=== PATIENT | female | born 1985 ===

== ENCOUNTER 2017-02-11 06:46 | Emergency (ER) | payer BC ==
[2017-02-11] MEDS ORDERED: Sodium Chloride 0.9% 1,000 ML IV STA (07:37)
[2017-02-11 08:05] LABS: BASO % 0.4 % (0.0-2.0); EOS % 0.5 % (0.0-4.0); HEMATOCRIT 38.7 % (34.0-47.0); LYMPH # 1.4 K/uL (1.0-4.3); LYMPH % 19.5 % (20.0-40.0); MEAN CELL VOLUME 91.9 fl (81.0-99.0); MEAN CORPUSCULAR HEMOGLOBIN 30.4 pg (27.0-31.0); MEAN CORPUSCULAR HGB CONC 33.1 g/dL (33.0-37.0); MEAN PLATELET VOLUME 9.3 fl (7.2-11.7); MONO # 0.7 K/uL (0.0-0.8); MONO % 10.3 % (0.0-10.0); NEUT # 4.8 K/uL (1.8-7.0); NEUT % 69.3 % (50.0-75.0); NRBC % 0.1 % (0.0-0.0); RED CELL DISTRIBUTION WIDTH 12.6 % (11.5-14.5)
[2017-02-11 08:18] LABS: ALB/GLOB RATIO 1.6 (1.0-2.1); ALKALINE PHOSPHATASE 54 U/L (38-126); ALT/SGPT 24 U/L (9-52); AST/SGOT 24 U/L (14-36); BILIRUBIN,TOTAL 0.5 mg/dl (0.2-1.3); BLOOD UREA NITROGEN 8 mg/dl (7-17); CALCIUM 10.2 mg/dL (8.4-10.2); CARBON DIOXIDE 27 mmol/L (22-30); CHLORIDE 103 mmol/L (98-107); GFR AFRICAN-AMERICAN > 60; GLUCOSE,RANDOM 89 mg/dL (65-105); LIPASE 74 U/L (23-300); POTASSIUM 3.9 MMOL/L (3.6-5.0); SODIUM 142 mmol/l (132-148); TOTAL PROTEIN 7.9 G/DL (6.3-8.2)
--- NOTE | 2017-02-11 08:52 | US ---
HISTORY: mid/upper abd pain COMPARISON: None available. TECHNIQUE: Sonographic evaluation of the abdomen. FINDINGS: LIVER: Measures 12.0 cm in sagittal dimension. Echogenic liver may be seen in setting of hepatic parenchymal disease or fatty infiltration. No focal hepatic mass identified. The main portal vein appears patent with normal directional flow. No intrahepatic bile duct dilatation. GALLBLADDER: Slightly contracted state limits evaluation. No gallstones. No gallbladder wall thickening. Negative sonographic Mercado's sign as assessed by the bag press operator. COMMON BILE DUCT: Measures 3 mm. PANCREAS: Not well visualized. RIGHT KIDNEY: Measures 11.7 x 4.6 x 4.9cm. No obstructing calculus or hydronephrosis identified. LEFT KIDNEY: Measures 11.8 x 4.8 x 5.5cm. No obstructing calculus or hydronephrosis identified. SPLEEN: Measures approximately 9.2 cm AORTA: Limited views appear unremarkable. IVC: Limited views appear unremarkable. OTHER FINDINGS: None. IMPRESSION: Echogenic liver may be seen in setting of hepatic parenchymal disease or fatty infiltration.
--- NOTE | 2017-02-11 09:48 | ED PDOC ---
HPI: Abdomen Time Seen by Provider: 02/11/17 07:08 Chief Complaint (Nursing): Abdominal Pain Chief Complaint (Provider): upper abd pain, vomiting History Per: Patient History/Exam Limitations: no limitations Onset/Duration Of Symptoms: Days (3 months, worse today) Location Of Pain/Discomfort: Epigastric Quality Of Discomfort: Sharp, Cramping Associated Symptoms: Nausea, Vomiting, Loss Of Appetite. denies: Diarrhea Exacerbating Factors: None Alleviating Factors: None Last Bowel Movement: Today Additional Complaint(s): 31yo female c/o epigastric pain (burning, cramping) associated with several episodes of nonbloody but bilious vomiting overnight, symptoms ongoing for several months but worse last several days. Denies melena, fever, weight loss or back pain. 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 Past Medical History Reviewed: Historical Data, Nursing Documentation Vital Signs: Last Vital Signs Temp 98.0 F 02/11/17 14:03 Pulse 66 02/11/17 14:03 Resp 16 02/11/17 14:03 BP 100/70 02/11/17 14:03 Pulse Ox 99 02/11/17 14:03 - Medical History PMH: Gastritis - Surgical History Surgical History: No Surg Hx - Family History Family History: States: Unknown Family Hx - Living Arrangements Living Arrangements: With Family - Social History Current smoker - smoking cessation education provided: No - Home Medications Home Medications: Ambulatory Orders Medication Instructions Recorded Ondansetron [Zofran] 4 mg PO Q6H PRN #10 tab 02/11/17 Pantoprazole [Protonix] 40 mg PO DAILY #30 02/11/17 - Allergies Allergies/Adverse Reactions: Allergies Allergy/AdvReac Type Severity Reaction Status Date / Time Penicillins Allergy RASH Verified 02/11/17 07:12 sulfamethoxazole Allergy RASH Verified 02/11/17 07:12 [From Bactrim] trimethoprim [From Bactrim] Allergy RASH Verified 02/11/17 07:12 Review of Systems ROS Statement: Except As Marked, All Systems Reviewed And Found Negative Constitutional: Negative for: Fever, Chills Cardiovascular: Negative for: Chest Pain, Palpitations Respiratory: Negative for: Cough, Shortness of Breath Gastrointestinal: Positive for: Nausea, Vomiting, Abdominal Pain. Negative for : Diarrhea Genitourinary Female: Negative for: Dysuria, Frequency Musculoskeletal: Negative for: Neck Pain, Shoulder Pain Skin: Negative for: Rash, Lesions, Jaundice Neurological: Negative for: Weakness, Numbness, Change in Speech Psych: Negative for: Depression Physical Exam - Reviewed Nursing Documentation Reviewed: Yes Vital Signs Reviewed: Yes - Physical Exam Appears: Positive for: Well, Non-toxic, No Acute Distress Head Exam: Positive for: ATRAUMATIC, NORMAL INSPECTION, NORMOCEPHALIC Skin: Positive for: Normal Color, Warm, DRY Eye Exam: Positive for: Normal appearance, EOMI, PERRL. Negative for: Scleral icterus ENT: Positive for: Normal ENT Inspection Neck: Positive for: Normal, Painless ROM Cardiovascular/Chest: Negative for: Tachycardia Respiratory: Negative for: Respiratory Distress Pulses-Radial (L): 2+ Gastrointestinal/Abdominal: Positive for: Soft, Tenderness (epigastric/RUQ). Negative for: Guarding, Rebound Extremity: Positive for: Normal ROM. 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 Negative for: Motor/Sensory Deficits - Laboratory Results Result Diagrams: 02/11/17 07:51 02/11/17 07:51 Urine POC: Negative - ECG O2 Sat by Pulse Oximetry: 100 Pulse Ox Interpretation: Normal Medical Decision Making Medical Decision Making: Workup for upper abdominal pain initiated. IVF bolus, IV antiemetic, IV protonix and PO bentyl ordered Labs and Abd US ordered. --------- Upreg neg Labs unremarkable including LFTs and lipase. 935am improving, GI radiosonde operator contacted [id number] Carpenter who recommends urgent endoscopy r/o gastric or duodenal ulcer. [address] Endo performed and per Dr Carpenter no concerning findings to warrant hospital admission. Dr Carpenter provided Rx and will followup with patient for biopsy results. Scribe~Attestation Documented by Diana Martin acting as a scribe for Christ Red MD Provider~Attestation All medical record entries made by the Scribe were at my direction and personally dictated by me. I have reviewed the chart and agree that the record accurately reflects my personal performance of the history, physical exam, medical decision making, and the department course for this patient. I have also personally directed, reviewed, and agree with the discharge instructions and disposition. Disposition - Clinical Impression Clinical Impression: Abdominal pain, History of esophagogastroduodenoscopy - Patient ED Disposition Is Patient to be Admitted: Yes Discussed With : patience - Disposition Referrals: Patience MONROE,MD Rosina [Medical Doctor] - Disposition Time: 11:22 Condition: STABLE Additional Instructions: Return to ER for any worse or new symptoms. See Dr Carpenter for followup. Prescriptions: Ondansetron [Zofran] 4 mg PO Q6H PRN #10 tab PRN Reason: Nausea/Vomiting Pantoprazole [Protonix] 40 mg PO DAILY #30 Instructions: Upper Endoscopy (GEN), Acute Abdominal Pain (ED), Deep Sedation ( ED) Forms: [employer] (Greenlandic)
[2017-02-11] MEDS ORDERED: Lidocaine 2% MPF (5 ml) Inj ONE (11:22)
[2017-02-11] MEDS ORDERED: Propofol 10 mg/ml Inj (20 ML) ONE (11:22)
[2017-02-11] MEDS ORDERED: Lactated Ringer's 500 ML IV ONE (11:39)
--- NOTE | 2017-02-11 12:35 | CP.PCM.CON ---
History of Present Illness - History of Present Illness History of Present Illness: Consult requested by ER- This is a 31 yr old resident who on night float started to have vomiting episodes with severe abdominal pain. As per patient she has had worsening epigastric pain for past 3 months associated with vomiting which is intermittent mostly in am. She denies hematemesis, rectal bleeding, change in bowel habits. She reports weight loss in past 3 months due to decreased appetite. She had EGD in [place] and was given cholestyramine and carafate. She self medicated herself with reglan and carafate. Review of Systems - Review of Systems Review of Systems: 12 point ROS unremarkable except that documented in HPI Past Patient History - Past Social History Smoking Status: Never Smoked - GASTROINTESTINAL Hx Gastritis: Yes - PSYCHIATRIC Hx Substance Use: No - SURGICAL HISTORY Hx Surgeries: No - ANESTHESIA Hx Anesthesia: No Meds Allergies/Adverse Reactions: Allergies Allergy/AdvReac Type Severity Reaction Status Date / Time Penicillins Allergy RASH Verified 02/11/17 07:12 sulfamethoxazole Allergy RASH Verified 02/11/17 07:12 [From Bactrim] trimethoprim [From Bactrim] Allergy RASH Verified 02/11/17 07:12 Physical Exam - Constitutional Appears: Well - Head Exam Head Exam: ATRAUMATIC, NORMAL INSPECTION, NORMOCEPHALIC - Eye Exam Eye Exam: EOMI, Normal appearance, PERRL - ENT Exam ENT Exam: Mucous Membranes Moist, Normal Exam - Respiratory Exam Respiratory Exam: Clear to Auscultation Bilateral, NORMAL BREATHING PATTERN - Cardiovascular Exam Cardiovascular Exam: REGULAR RHYTHM - GI/Abdominal Exam GI & Abdominal Exam: Normal Bowel Sounds, Soft. absent: Tenderness - Extremities Exam Extremities exam: Positive for: normal inspection - Neurological Exam Neurological exam: Alert, CN II-XII Intact, Normal Gait, Oriented x3, Reflexes Normal - Psychiatric Exam Psychiatric exam: Normal Affect, Normal Mood - Skin Skin Exam: Dry, Intact, Normal Color, Warm Results - Vital Signs Recent Vital Signs: Last Vital Signs Temp 96.8 F L 02/11/17 12:15 Pulse 78 02/11/17 12:15 Resp 16 02/11/17 12:15 BP 101/55 L 02/11/17 12:15 Pulse Ox 100 02/11/17 12:15 - Labs Result Diagrams: 02/11/17 07:51 02/11/17 07:51 Labs: Laboratory Results - last 24 hr 02/11/17 02/11/17 07:51 07:51 WBC 7.0 RBC 4.21 Hgb 12.8 Hct 38.7 MCV 91.9 MCH 30.4 MCHC 33.1 RDW 12.6 Plt Count 208 MPV 9.3 Neut % (Auto) 69.3 Lymph % (Auto) 19.5 L [place] % (Auto) 10.3 H Eos % (Auto) 0.5 Baso % (Auto) 0.4 Neut # 4.8 Lymph # 1.4 [place] # 0.7 Eos # 0.0 Baso # 0.0 Sodium 142 Potassium 3.9 Chloride 103 Carbon Dioxide 27 Anion Gap 15 BUN 8 Creatinine 0.7 Est GFR ( Amer) > 60 Est GFR (Non-Af Amer) > 60 Random Glucose 89 Calcium 10.2 Total Bilirubin 0.5 AST 24 ALT 24 Alkaline Phosphatase 54 Total Protein 7.9 Albumin 4.8 Globulin 3.1 Albumin/Globulin Ratio 1.6 Lipase 74 Assessment & Plan - Assessment and Plan (Free Text) Assessment: 31 yr old F with chronic abdominal / epigastric pain for past 3 months worsening in past week associated with vomiting. She self medicated herself with reglan and carafate. Yesterday night symptoms exacerbated. Patient was taken for urgent EGD that showed gastritis and gastric erosions. No PUD or duodenal ulcer. Plan: - PPi daily - Stool softeners - Follow up biopsy of esophagus, gastric and duodenum - Diet councelling- eat breakfast daily - May be discharged to home
[2017-02-11 12:39] VITALS: PULSE 66
--- NOTE | 2017-02-11 14:02 | CP.PCM.HP ---
History of Present Illness - History of Present Illness History of Present Illness: 31yo F with no PMHx c/o vomiting and abdominal pain. NB/NB vomitus today. a/w epigastric abd pain x3 months. Denies hematemesis, rectal bleeding, change in bowel habits. Some relief with reglan and carafate. PMHx: none FHx: NC Social Hx: denies x3 Allergies: PCN, SMP-TMX ED course: zofran IVF neg urine preg G/I c/s Present on Admission - Present on Admission Any Indicators Present on Admission: No Review of Systems - Review of Systems All systems: reviewed and no additional remarkable complaints except - Constitutional Constitutional: Weight Loss - Gastrointestinal Gastrointestinal: Abdominal Pain, Nausea, Vomiting Past Patient History - Past Social History Smoking Status: Never Smoked - GASTROINTESTINAL Hx Gastritis: Yes - PSYCHIATRIC Hx Substance Use: No - SURGICAL HISTORY Hx Surgeries: No - ANESTHESIA Hx Anesthesia: No Meds Home Medications: Home Medication List Medication Instructions Recorded Confirmed Type Ondansetron [Zofran] 4 mg PO Q6H PRN #10 tab 02/11/17 Rx Pantoprazole [Protonix] 40 mg PO DAILY #30 02/11/17 Rx Allergies/Adverse Reactions: Allergies Allergy/AdvReac Type Severity Reaction Status Date / Time Penicillins Allergy RASH Verified 02/11/17 07:12 sulfamethoxazole Allergy RASH Verified 02/11/17 07:12 [From Bactrim] trimethoprim [From Bactrim] Allergy RASH Verified 02/11/17 07:12 Physical Exam - Constitutional Appears: Non-toxic, No Acute Distress - Head Exam Head Exam: ATRAUMATIC, NORMAL INSPECTION - Eye Exam Eye Exam: Normal appearance - ENT Exam ENT Exam: Mucous Membranes Moist - Neck Exam Neck exam: Positive for: Full Rom, Normal Inspection - Respiratory Exam Respiratory Exam: Clear to Auscultation Bilateral - Cardiovascular Exam Cardiovascular Exam: REGULAR RHYTHM - GI/Abdominal Exam GI & Abdominal Exam: Soft, Tenderness - Extremities Exam Extremities exam: Positive for: normal inspection - Back Exam Back exam: NORMAL INSPECTION - Neurological Exam Neurological exam: Alert, Oriented x3 - Skin Skin Exam: Dry, Warm Results - Vital Signs Recent Vital Signs: Last Vital Signs Temp 96.8 F L 02/11/17 12:15 Pulse 66 02/11/17 12:37 Resp 14 02/11/17 12:37 BP 98/61 L 02/11/17 12:37 Pulse Ox 100 02/11/17 12:37 - Labs Result Diagrams: 02/11/17 07:51 02/11/17 07:51 Labs: Laboratory Results - last 24 hr 02/11/17 02/11/17 07:51 07:51 WBC 7.0 RBC 4.21 Hgb 12.8 Hct 38.7 MCV 91.9 MCH 30.4 MCHC 33.1 RDW 12.6 Plt Count 208 MPV 9.3 Neut % (Auto) 69.3 Lymph % (Auto) 19.5 L [place] % (Auto) 10.3 H Eos % (Auto) 0.5 Baso % (Auto) 0.4 Neut # 4.8 Lymph # 1.4 [place] # 0.7 Eos # 0.0 Baso # 0.0 Sodium 142 Potassium 3.9 Chloride 103 Carbon Dioxide 27 Anion Gap 15 BUN 8 Creatinine 0.7 Est GFR ( Amer) > 60 Est GFR (Non-Af Amer) > 60 Random Glucose 89 Calcium 10.2 Total Bilirubin 0.5 AST 24 ALT 24 Alkaline Phosphatase 54 Total Protein 7.9 Albumin 4.8 Globulin 3.1 Albumin/Globulin Ratio 1.6 Lipase 74 Assessment & Plan - Assessment and Plan (Free Text) Assessment: 31yo F with no PMHx c/o vomiting and abdominal pain. vomiting and abdominal pain -GI c/s -EGD completed, gastritis, erosions -d/c from ED -PPI PO daily -diet modification Decision To Admit - Pt Status Changed To: Hospital Disposition Of: Observation - . Bed Request Type: ED Observation Admitting Physician: Sixto Kwon
[2017-02-11 14:05] VITALS: BP 100/70; RESP 16; TEMP 98
[2017-02-19 07:54] VITALS: O2SAT 100
== END 2017-02-11 14:04 | disposition home or self-care (01) ==
LOC: H.ER 06:46 → UNDOADMOB 11:12 → H.ERHOLD 11:12 → H.ER 14:04
DX: R10.10 Upper abdominal pain, unspecified (principal); Z88.0 Allergy status to penicillin; K29.70 Gastritis, unspecified, without bleeding
CPT/HCPCS: 76700; 80053; 81025; 83690; 85025; 88305; 96374; 96375; 99283; C9113; J2405; J2704; J7040; J7120

== ENCOUNTER 2017-02-14 23:09 | Emergency (ER) | payer BC ==
[2017-02-14 23:18] VITALS: O2SAT 100
--- NOTE | 2017-02-15 00:49 | ED PDOC ---
HPI: Abdomen Time Seen by Provider: 02/15/17 00:30 Chief Complaint (Nursing): GI Problem Chief Complaint (Provider): nausea, vomiting History Per: Patient History/Exam Limitations: no limitations Onset/Duration Of Symptoms: Hrs Current Symptoms Are (Timing): Still Present Location Of Pain/Discomfort: Epigastric Additional History Per: Patient Additional Complaint(s): 31 y/o female presents with nausea, vomiting x 1 hour. 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 Patient states she was given crackers and juice and threw up again, and was sent to the ED. Patient states she was in ED on Tuesday for same symptoms, with worsening epigastric abdominal pain; had emergent endoscopy which showed gastritis and erosions and discharged with rx Zofran and Protonix. Patient notes these symptoms to have been present x 3 months. Patient states abdominal pain not as severe as previous ED visit, is now more concerned with nausea. Denies fever, headache, dizziness, chest pain, shortness of breath, palpitations, changes in bowel movements, urinary symptoms. Past Medical History Reviewed: Historical Data, Nursing Documentation, Vital Signs Vital Signs: Last Vital Signs Temp 98.2 F 02/14/17 23:14 Pulse 86 02/14/17 23:14 Resp 18 02/14/17 23:14 BP 101/61 02/14/17 23:14 Pulse Ox 100 02/15/17 05:38 - Medical History PMH: Gastritis - Family History Family History: States: Unknown Family Hx - Living Arrangements Living Arrangements: With Family - Home Medications Home Medications: Ambulatory Orders Medication Instructions Recorded Ondansetron [Zofran] 4 mg PO Q6H PRN #10 tab 02/11/17 Pantoprazole [Protonix] 40 mg PO DAILY #30 02/11/17 - Allergies Allergies/Adverse Reactions: Allergies Allergy/AdvReac Type Severity Reaction Status Date / Time Penicillins Allergy RASH Verified 02/11/17 07:12 sulfamethoxazole Allergy RASH Verified 02/11/17 07:12 [From Bactrim] trimethoprim [From Bactrim] Allergy RASH Verified 02/11/17 07:12 Review of Systems ROS Statement: Except As Marked, All Systems Reviewed And Found Negative Gastrointestinal: Positive for: Nausea, Vomiting, Abdominal Pain Physical Exam - Reviewed Nursing Documentation Reviewed: Yes Vital Signs Reviewed: Yes - Physical Exam Appears: Positive for: Well, Non-toxic, No Acute Distress Head Exam: Positive for: ATRAUMATIC, NORMAL INSPECTION, NORMOCEPHALIC Skin: Positive for: Normal Color Eye Exam: Positive for: Normal appearance ENT: Positive for: Normal ENT Inspection Cardiovascular/Chest: Positive for: Regular Rate, Rhythm Respiratory: Positive for: Normal Breath Sounds Gastrointestinal/Abdominal: Positive for: Bowel Sounds, Soft, Tenderness (mild epigastric) Back: Positive for: Normal Inspection Extremity: Positive for: Normal ROM Neurologic/Psych: Positive for: Alert, Oriented - Laboratory Results Result Diagrams: 02/15/17 03:51 02/15/17 03:51 - ECG O2 Sat by Pulse Oximetry: 100 - Progress ED Course And Treament: Zofran IM, pepcid PO On re-eval, patient states abdominal pain resolved. Patient notes returning of nausea after PO challenge. Labs, IV fluids, IV zofran, IV reglan ordered Patient states she is feeling better on re-eval. Tolerating PO. Case discussed with ED attending Dr. Boyd; agrees with plan to discharge and follow up outpatient GI. Patient educated on findings, advised to continue Zofran and Protonix as directed. Diet modification. Return to ED for worsening/concerning symptoms. Disposition - Clinical Impression Clinical Impression: Gastritis - Patient ED Disposition Is Patient to be Admitted: No Counseled Patient/Family Regarding: Studies Performed, Diagnosis, Need For Followup - Disposition Referrals: Jayden MONROE,MD Rosina [Medical Doctor] - Disposition: Routine/Home Disposition Time: 05:51 Condition: IMPROVED Instructions: Gastritis (ED)
[2017-02-15] MEDS ORDERED: Sodium Chloride 0.9% 1,000 ML IV STA (03:36)
[2017-02-15 03:54] LABS: BASO % 0.4 % (0.0-2.0); EOS % 0.4 % (0.0-4.0); LYMPH # 1.8 K/uL (1.0-4.3); MEAN CELL VOLUME 90.4 fl (81.0-99.0); MEAN CORPUSCULAR HEMOGLOBIN 30.9 pg (27.0-31.0); MEAN CORPUSCULAR HGB CONC 34.2 g/dL (33.0-37.0); MEAN PLATELET VOLUME 9.3 fl (7.2-11.7); MONO # 0.7 K/uL (0.0-0.8); MONO % 8.2 % (0.0-10.0); NEUT # 5.4 K/uL (1.8-7.0); RED CELL DISTRIBUTION WIDTH 12.5 % (11.5-14.5)
[2017-02-15 04:11] LABS: BLOOD UREA NITROGEN 6 mg/dl (7-17); CALCIUM 9.7 mg/dL (8.4-10.2); CARBON DIOXIDE 25 mmol/L (22-30); CHLORIDE 104 mmol/L (98-107); GFR AFRICAN-AMERICAN > 60; GLUCOSE,RANDOM 103 mg/dL (65-105); POTASSIUM 3.8 MMOL/L (3.6-5.0); SODIUM 142 mmol/l (132-148)
[2017-02-15 04:12] LABS: ALB/GLOB RATIO 1.5 (1.0-2.1); TOTAL PROTEIN 7.1 G/DL (6.3-8.2)
[2017-02-15 04:13] LABS: ALKALINE PHOSPHATASE 46 U/L (38-126); ALT/SGPT 55 U/L (9-52); AST/SGOT 41 U/L (14-36); BILIRUBIN,TOTAL 0.5 mg/dl (0.2-1.3)
[2017-02-15 04:16] LABS: LIPASE 79 U/L (23-300)
[2017-02-15 06:22] VITALS: BP 115/69; PULSE 76; RESP 16; TEMP 98
== END 2017-02-15 06:25 | disposition home or self-care (01) ==
LOC: H.ER 23:09
DX: K29.70 Gastritis, unspecified, without bleeding (principal)
CPT/HCPCS: 80053; 81025; 83690; 85025; 96360; 96372; 99283; J2405; J2765; J7040

== ENCOUNTER 2017-03-06 09:33 | Emergency (ER) | payer BC ==
[2017-03-06 09:45] VITALS: BP 117/65; PULSE 101; RESP 16; TEMP 99.2; O2SAT 98
[2017-03-06 09:46] VITALS: BMI 20.5
[2017-03-06] MEDS ORDERED: Sodium Chloride 0.9% 1,000 ML IV STA (10:21)
--- NOTE | 2017-03-06 10:29 | ED PDOC ---
HPI: Abdomen Time Seen by Provider: 03/06/17 10:03 Chief Complaint (Nursing): Abdominal Pain Chief Complaint (Provider): Abdominal Pain History Per: Patient History/Exam Limitations: no limitations Onset/Duration Of Symptoms: Days (x months) Current Symptoms Are (Timing): Still Present Location Of Pain/Discomfort: Epigastric Associated Symptoms: Nausea, Vomiting Additional Complaint(s): Alex is a 31 y/o female who presents to the ED for evaluation of recurrent nausea, vomiting, and epigastric pain, onset months ago. Patient has been seen here multiple times in the past month, and had US Abdomen on 02/11/17 showing fatty liver disease but no acute findings. CT Abd/Pelvis done on 02/22 showed a ruptured cyst. Patient has had GI evaluation, and endoscopy with Dr. Carpenter showed gastritis & gastric erosions, but no ulcers. She was instructed to continue PPI and stool softener. Patient now with dizziness (room spinning), which worsens with movement. Reports finishing her 10 day treatment for H. pylori as well as PPIs. Follow up with Dr. Carpenter is scheduled for next per patient. Denies any associated chest pain, shortness of breath, cough, urinary symptoms, diarrhea, weakness, numbness, or headache. PMD: Dr. Isaak Mcdonald Past Medical History Reviewed: Historical Data, Nursing Documentation, Vital Signs Vital Signs: Last Vital Signs Temp 99.2 F 03/06/17 09:45 Pulse 101 H 03/06/17 09:45 Resp 16 03/06/17 09:45 BP 117/65 03/06/17 09:45 Pulse Ox 98 03/06/17 11:11 - Medical History PMH: Gastritis - Family History Family History: States: Unknown Family Hx - Social History Current smoker - smoking cessation education provided: No Alcohol: None Drugs: Denies - Home Medications Home Medications: Ambulatory Orders Medication Instructions Recorded Ondansetron [Zofran] 4 mg PO Q6H PRN #10 tab 02/11/17 Pantoprazole [Protonix] 40 mg PO DAILY #30 02/11/17 Pantoprazole Sodium [Protonix] 40 mg PO DAILY 14 Days ect 03/06/17 - Allergies Allergies/Adverse Reactions: Allergies Allergy/AdvReac Type Severity Reaction Status Date / Time Penicillins Allergy RASH Verified 02/11/17 07:12 sulfamethoxazole Allergy RASH Verified 02/11/17 07:12 [From Bactrim] trimethoprim [From Bactrim] Allergy RASH Verified 02/11/17 07:12 Review of Systems ROS Statement: Except As Marked, All Systems Reviewed And Found Negative Constitutional: Negative for: Fever, Chills Cardiovascular: Negative for: Chest Pain Respiratory: Negative for: Cough, Shortness of Breath Gastrointestinal: Positive for: Nausea, Vomiting, Abdominal Pain (epigastric). Negative for: Diarrhea Genitourinary Female: Negative for: Dysuria, Frequency, Incontinence, Hematuria Musculoskeletal: Negative for: Back Pain Neurological: Positive for: Dizziness (room spinning). Negative for: Weakness, Numbness, Headache Physical Exam - Reviewed Nursing Documentation Reviewed: Yes Vital Signs Reviewed: Yes - Physical Exam Appears: Positive for: Non-toxic, No Acute Distress Head Exam: Positive for: ATRAUMATIC, NORMOCEPHALIC Skin: Positive for: Normal Color, Warm, Dry Eye Exam: Positive for: EOMI, Normal appearance, PERRL ENT: Positive for: Normal ENT Inspection. Negative for: Nasal Congestion, Pharyngeal Erythema Neck: Positive for: Normal, Painless ROM, Supple Cardiovascular/Chest: Positive for: Regular Rate, Rhythm. Negative for: Murmur Respiratory: Positive for: Normal Breath Sounds. Negative for: Accessory Muscle Use, Respiratory Distress Gastrointestinal/Abdominal: Positive for: Soft, Tenderness (Mild epigastric tenderness) Back: Positive for: Normal Inspection. Negative for: L CVA Tenderness, R CVA Tenderness, Vertebral Tenderness Extremity: Positive for: Normal ROM. Negative for: Tenderness, Pedal Edema, Deformity Neurologic/Psych: Positive for: Alert, healthcare interpreter II-XII, Oriented. Negative for: Motor/Sensory Deficits, Aphasia, Facial Droop - Laboratory Results Result Diagrams: 03/06/17 10:20 03/06/17 10:20 Interpretation Of Abn Labs: no acute - ECG ECG: Positive for: Interpreted By Me, Viewed By Me ECG Rhythm: Positive for: Normal QRS, Normal ST Segment, Sinus Rhythm O2 Sat by Pulse Oximetry: 98 (RA) Pulse Ox Interpretation: Normal - Progress ED Course And Treament: 1138: Spoke with Dr. Hussein for Dr. Vickers. Knows pt. well. Made aware of all findings. Wants pt. to fu outpt. Protonix 40mg daily. Stable. AAOx3. Pain free. Tolerated PO. Fu with Dr. Carpenter. Medical Decision Making Medical Decision Making: Time: 10:20 Initial Plan: --EKG --Urine test --Urine dip --CMP --Lipase --CBC --Meclizine 25 mg PO --Zofran 4 mg IV --Pepcid 20 mg IV --NS IV 1000 ml at 1000 mls/hr --Pending reevaluation Scribe Attestation: Documented by Valencia Gonzalez, acting as a scribe for Adarsh Johnson MD Provider Scribe Attestation: All medical record entries made by the Scribe were at my direction and personally dictated by me. I have reviewed the chart and agree that the record accurately reflects my personal performance of the history, physical exam, medical decision making, and the department course for this patient. I have also personally directed, reviewed, and agree with the discharge instructions and disposition. Disposition - Clinical Impression Clinical Impression: Abdominal pain - Patient ED Disposition Is Patient to be Admitted: No Counseled Patient/Family Regarding: Studies Performed, Diagnosis, Need For Followup, Rx Given - Disposition Referrals: Isaak Mcdonald MD [Primary Care Provider] - 03/07/17 Jayden MONROE,MD Rosina [Medical Doctor] - [employer] [place] [Outside] Disposition: Routine/Home Disposition Time: 11:53 Condition: STABLE Additional Instructions: Return if not better in 3 days. Prescriptions: Pantoprazole Sodium [Protonix] 40 mg PO DAILY 14 Days ect Instructions: Acute Abdominal Pain (ED) Forms: [employer] (Vietnamese)
[2017-03-06 10:40] LABS: BASO % 0.3 % (0.0-2.0); EOS % 0.1 % (0.0-4.0); HEMATOCRIT 37.6 % (34.0-47.0); LYMPH # 0.8 K/uL (1.0-4.3); LYMPH % 12.3 % (20.0-40.0); MEAN CELL VOLUME 92.1 fl (81.0-99.0); MEAN CORPUSCULAR HEMOGLOBIN 30.1 pg (27.0-31.0); MEAN CORPUSCULAR HGB CONC 32.7 g/dL (33.0-37.0); MEAN PLATELET VOLUME 9.1 fl (7.2-11.7); MONO # 0.4 K/uL (0.0-0.8); MONO % 7.2 % (0.0-10.0); NEUT # 4.9 K/uL (1.8-7.0); NEUT % 80.1 % (50.0-75.0); RED CELL DISTRIBUTION WIDTH 12.7 % (11.5-14.5); WHITE BLOOD COUNT 6.2 K/uL (4.8-10.8)
[2017-03-06 10:41] LABS: ALB/GLOB RATIO 1.6 (1.0-2.1); ALKALINE PHOSPHATASE 45 U/L (38-126); ALT/SGPT 59 U/L (9-52); AST/SGOT 25 U/L (14-36); BILIRUBIN,TOTAL 0.4 mg/dl (0.2-1.3); BLOOD UREA NITROGEN 7 mg/dl (7-17); CALCIUM 9.4 mg/dL (8.4-10.2); CARBON DIOXIDE 25 mmol/L (22-30); CHLORIDE 103 mmol/L (98-107); GFR AFRICAN-AMERICAN > 60; GLUCOSE,RANDOM 98 mg/dL (65-105); LIPASE 68 U/L (23-300); SODIUM 142 mmol/l (132-148); TOTAL PROTEIN 7.4 G/DL (6.3-8.2)
--- NOTE | 2017-03-07 10:46 | CARD ---
APPROVED REPORT EKG Measurement Heart [id number] <Conclusion> Normal sinus rhythm with sinus arrhythmia Rightward axis Borderline ECG
== END 2017-03-06 12:05 | disposition home or self-care (01) ==
LOC: SUPCPDRO 09:33 → H.ER 09:33
DX: K29.70 Gastritis, unspecified, without bleeding (principal); Z88.0 Allergy status to penicillin
CPT/HCPCS: 80053; 81025; 83690; 85025; 93005; 96374; 96375; 99284; J2405; J7040